=== PATIENT | female | born 1940 | race Caucasian/White ===

== ENCOUNTER → 2016-11-04 | Emergency (ER) | payer OTHER ==
[~2016-11-04] MED LIST: ASPIRIN 325 MG TABLET ONE; ASPIRIN 81 MG CHEWABLE TABLETS PO ONE
--- NOTE | 2016-11-04 03:24 | PDOC ---
[id number] No Limitations - History of Present Illness Initial Comments: 11/04/16 03:49 The patient is a 76-year-old female, with a significant past medical history of asthma, dizziness, and hypertension, who presents to the ED with palpitations that began today at 2AM. The palpitations woke the patient up out of her sleep, lasting 1 minute, stopping, and then recurring again. The patient denies any shortness of breath, chest pain, or back pain. <Latricia Juarez - Last Filed: 11/04/16 03:57> - General History Source: Patient - History of Present Illness Timing/Duration: 1 hour Severity: mild Associated Symptoms: reports: denies symptoms Aspirin Received prior to arrival: Yes: no aspirin today <Enoc Castaneda - Last Filed: 11/30/16 06:15> - General Stated Complaint: PAIN Past History <Latricia Juarez - Last Filed: 11/04/16 03:57> - Travel Traveled outside of the country in the last 30 days: No Close contact w/someone who was outside of country & ill: No - Past Medical History Anemia: No Asthma: Yes Cancer: No Cardiac Disorders: No CVA: No COPD: No CHF: No Dementia: No Diabetes: No GI Disorders: No Disorders: No HTN: Yes Hypercholesterolemia: Yes Liver Disease: No Seizures: No Thyroid Disease: No - Surgical History Abdominal Surgery: No Appendectomy: No Cardiac Surgery: No Cholecystectomy: No Lung Surgery: No Neurologic Surgery: No Orthopedic Surgery: No - Psycho/Social/Smoking Cessation Hx Anxiety: No Suicidal Ideation: No Smoking History: Former smoker Have you smoked in the past 12 months: No If you are a former smoker, when did you quit?: 1991 Hx Alcohol Use: No Drug/Substance Use Hx: No Substance Use Type: None Hx Substance Use Treatment: No <Enoc Castaneda - Last Filed: 11/30/16 06:15> - Past Medical History Allergies/Adverse Reactions: Allergies Allergy/AdvReac Type Severity Reaction Status Date / Time pepper Allergy Verified 06/15/16 20:25 MUSTARD Allergy Severe Swelling Uncoded 06/15/16 20:25 PEPPER Allergy Severe Swelling Uncoded 06/15/16 20:25 Home Medications: Ambulatory Orders Montelukast Na [Singulair -] 10 mg PO HS 07/21/13 Acetaminophen [Tylenol .Regular Strength -] 2 tab PO PRN PRN 08/25/13 Omeprazole [Prilosec (RX)] 20 mg PO DAILY 08/25/13 Albuterol Sulfate Inhaler - [Ventolin Hfa Inhaler -] 1 - 2 inh PO QID 02/04/16 Docusate Sodium [Colace -] 100 mg PO TID #21 capsule 02/13/16 Polyethylene Glycol 3350 [Miralax (For Daily Use) -] 17 gm PO DAILY PRN #1 bottle 02/14/16 Oxycodone HCl/Acetaminophen [Percocet 5-325 mg Tablet] 1 - 2 tab PO Q6H PRN #30 tab MDD 6 02/22/16 Aspirin [ASA -] 81 mg PO DAILY tab.chew 06/16/16 Atorvastatin Ca [Lipitor] 40 mg PO HS tablet 06/16/16 Docusate Sodium [Colace -] 100 mg PO TID PRN #0 capsule 06/16/16 Fluticasone Propionate [Flovent Diskus] 100 mcg IH PRN 06/16/16 Furosemide [Lasix -] 20 mg PO DAILY tablet 06/16/16 Losartan 50Mg/Hctz 12.5MG [Hyzaar -] 1 tab PO DAILY tablet 06/16/16 Review of Systems - Review of Systems Able to Perform ROS?: Yes Comments:: 11/04/16 03:50 GENERAL/CONSTITUTIONAL: No fever or chills. No weakness. HEAD, EYES, EARS, NOSE AND THROAT: No change in vision. No ear pain or discharge. No sore throat. CARDIOVASCULAR: No chest pain or shortness of breath. (+)Palpitations RESPIRATORY: No cough, wheezing, or hemoptysis. GASTROINTESTINAL: No nausea, vomiting, diarrhea or constipation. GENITOURINARY: No dysuria, frequency, or change in urination. MUSCULOSKELETAL: No joint or muscle swelling or pain. No neck or back pain. SKIN: No rash NEUROLOGIC: No headache, vertigo, loss of consciousness, or change in strength/ sensation. ENDOCRINE: No increased thirst. No abnormal weight change. HEMATOLOGIC/LYMPHATIC: No anemia, easy bleeding, or history of blood clots. ALLERGIC/IMMUNOLOGIC: No hives or skin allergy. <Latricia Juarez - Last Filed: 11/04/16 03:57> - Review of Systems Constitutional: No: Chills, Fever HEENTM: No: Blurred Vision, Double Vision, Other Respiratory: No: Cough, Orthopnea, Shortness of Breath, Wheezing Cardiac (ROS): Yes: Palpitations. No: Chest Pain, Edema ABD/GI: No: Nausea, Vomiting : No: Burning, Dysuria, Discharge Musculoskeletal: No: Back Pain, Gout Neurological: No: Headache, Numbness <Enoc Castaneda - Last Filed: 11/30/16 06:15> *Physical Exam - Vital Signs Last Vital Signs Temp Pulse Resp BP Pulse Ox 98.3 F 60 20 126/76 98 11/04/16 03:19 11/04/16 03:19 11/04/16 03:19 11/04/16 03:19 11/04/16 03:19 - Physical Exam Comments: 11/04/16 03:50 GENERAL: Awake, alert, and fully oriented, in no acute distress HEAD: No signs of trauma EYES: PERRLA, EOMI, sclera anicteric, conjunctiva clear ENT: Auricles normal inspection, hearing grossly normal, nares patent, oropharynx clear without exudates. Moist mucosa. NECK: Normal ROM, supple, no lymphadenopathy, JVD, or masses LUNGS: Breath sounds equal, clear to auscultation bilaterally. No wheezes, and no crackles HEART: Regular rate and rhythm, normal S1 and S2, no murmurs, rubs or gallops ABDOMEN: Soft, nontender, normoactive bowel sounds. No guarding, no rebound. No masses EXTREMITIES: Normal range of motion, no edema. No clubbing or cyanosis. No cords, erythema, or tenderness NEUROLOGICAL: Cranial nerves II through XII grossly intact. Normal speech, normal gait SKIN: Warm, Dry, normal turgor, no rashes or lesions noted <Latricia Juarez - Last Filed: 11/04/16 03:57> - Physical Exam General Appearance: Yes: Nourished, Appropriately Dressed HEENT: positive: EOMI, ANA, Normal ENT Inspection, Normal Voice Neck: positive: Trachea midline, Supple Respiratory/Chest: positive: Lungs Clear, Normal Breath Sounds. negative: Respiratory Distress Cardiovascular: positive: Regular Rhythm, Regular Rate, S1, S2, Edema, JVD <Enoc Castaneda - Last Filed: 11/30/16 06:15> Heart Score/ECG Review - ECG Intrepretation Comment:: 11/04/16 03:57 EKG was reviewed by Dr. Castaneda at 3:27. Impression: NSR 59 bpm with axis. Positive LVW. Nonspecific T wave. <Latricia Juarez - Last Filed: 11/04/16 03:57> ED Treatment Course - LABORATORY CBC & Chemistry Diagram: 11/04/16 03:48 11/04/16 03:48 - Medications Given in the ED: ED Medications Discontinued Medications Generic Name Dose Route Start Last Admin Trade Name Amanuel PRN Reason Stop Dose Admin Aspirin 324 mg 11/04/16 03:22 11/04/16 03:44 Asa - PO 11/04/16 03:23 324 mg ONCE ONE Administration <Latricia Juarez - Last Filed: 11/04/16 03:57> - LABORATORY CBC & Chemistry Diagram: 11/04/16 03:48 11/04/16 03:48 <Enoc Castaneda - Last Filed: 11/30/16 06:15> Medical Decision Making - Medical Decision Making 11/04/16 06:40 This is a 76yo F with isolated episode of palpitations tonight without chest pain and no other symptoms. She has minor cardiac risk and has a negative evaluation otherwise. She is discharged with follow up with the PMD within the next 24 hours. 11/30/16 06:15 <Enoc Castaneda - Last Filed: 11/30/16 06:15> *DC/Admit/Observation/Transfer - Attestations Scribe Attestion: 11/04/16 03:51 Documentation prepared by Latricia Juarez, acting as senior medical director for Enoc Castaneda MD. <Latricia Juarez - Last Filed: 11/04/16 03:57> - Discharge Dispostion Admit: No Decision to Admit order Date/Time: 11/04/16 06:42 - Attestations Physician Attestion: 11/04/16 06:42 I, Dr. Enoc Castaneda MD, attest that this document has been prepared under my direction and personally reviewed by me in its entirety. I further attest, that it accurately reflects all work, treatment, procedures and medical decision -making performed by me. <Enoc Castaneda - Last Filed: 11/30/16 06:15> Diagnosis at time of Disposition: Intermittent palpitations - Discharge Dispostion Disposition: HOME Condition at time of disposition: Good - Referrals Referrals: Dusty Becerril MD [Primary Care Provider] - - Patient Instructions Additional Instructions: Please follow up with your PMD within the next 24 hours and if there is any change otherwise in your symptoms, please return immediately to the ED.
[2016-11-04 03:28] VITALS: BP 126/76; PULSE 60; TEMP 98.3; BMI 37.0
[2016-11-04 04:03] LABS: BASOPHIL 0.4 % (0-2.0); MCH 28.7 pg (25.7-33.7); MEAN CELL VOLUME 87.1 fl (80-96); MEAN PLT VOLUME 8.7 fl (7.5-11.1); NEUTROPHILS 48.6 % (42.8-82.8); PLATELET COUNT 204 K/MM3 (134-434); RDW 15.2 % (11.6-15.6); WHITE BLOOD COUNT 6.8 K/mm3 (4.0-10.0)
[2016-11-04 04:13] LABS: INR 1.06 (0.82-1.09); PROTHROMBIN TIME (PATIENT) 11.7 SEC (9.98-11.88)
[2016-11-04 04:23] LABS: ALBUMIN 3.3 g/dl (3.4-5.0); ANION GAP 7 (8-16); BILIRUBIN,TOTAL 0.4 mg/dL (0.2-1.0); CALCIUM 8.6 mg/dL (8.5-10.1); CO2 28 mmol/L (21-32); CREATININE 1.1 mg/dL (0.55-1.02); GLUCOSE,RANDOM 91 mg/dL (74-106); MAGNESIUM 2.1 mg/dL (1.8-2.4); PHOSPHOROUS 3.1 mg/dL (2.5-4.9); SGOT/AST 12 U/L (15-37); SGPT/ALT 16 U/L (12-78); TOT PROT 6.2 g/dl (6.4-8.2)
[2016-11-04 04:26] LABS: ALK PHOS 86 U/L (45-117); TROPONIN I < 0.02 ng/ml (0.00-0.05)
[2016-11-04 04:43] LABS: FREE T4 0.87 ng/dl (0.76-1.46); THYROID STIMULATING HORMONE 5.03 uIU/ml (0.358-3.74)
--- NOTE | 2016-11-04 18:23 | EKG ---
Test Reason : Blood Pressure : / mmHG Vent. Rate : 059 BPM Atrial Rate : 059 BPM P-R Int : 204 ms QRS Dur : 080 ms QT Int : 412 ms P-R-T Axes : 055 013 033 degrees QTc Int : 407 ms SINUS BRADYCARDIA OTHERWISE NORMAL ECG WHEN COMPARED WITH ECG OF 15-JUN-2016 21:20, NO SIGNIFICANT CHANGE WAS FOUND Confirmed by MONICA ZAMUDIO MD ([id number]) on 11/04/2016 6:23:39 PM Referred By: Confirmed By:MONICA ZAMUDIO MD
== END | disposition home or self-care (01) ==
LOC: JER 03:16
DX: R00.2 Palpitations (principal); I10 Essential (primary) hypertension; J45.909 Unspecified asthma, uncomplicated
CPT/HCPCS: 36415; 71010-TC; 80053; 82550; 83690; 83735; 83880; 84100; 84439; 84443; 84481; 84484; 85025; 85610; 86850; 86900; 86901; 93005; 93010; 99281-25

== ENCOUNTER 2019-03-05 09:53 | Emergency (ER) | payer OTHER ==
[2019-03-05 10:03] VITALS: PULSE 65; TEMP 98.4; BMI 41.3
[2019-03-05] MEDS ORDERED: SODIUM CHLORIDE 1,000 ML IV STA (10:47)
[2019-03-05 11:19] LABS: INR 1.07 (0.83-1.09); PROTHROMBIN TIME (PATIENT) 12.6 SEC (9.7-13.0)
[2019-03-05 11:21] VITALS: BP 123/70
--- NOTE | 2019-03-05 11:30 | PDOC ---
Documentation entered by Roger Funes SCRIBE, acting as scribe for Kecia Solomon MD. Kecia Solomon MD: This documentation has been prepared by the Shantel cottrell Xhesika, SCRIBE, under my direction and personally reviewed by me in its entirety. I confirm that the documentation accurately reflects all work, treatment, procedures, and medical decision making performed by me. History of Present Illness - General Chief Complaint: Lightheaded Stated Complaint: RAPID RESPONSE History Source: Patient Exam Limitations: No Limitations - History of Present Illness Initial Comments: 03/05/19 10:53 Ms. Palomares is an 78 year old female with a significant PMH of Asthma, Anemia, COPD, GERD, HTN, HLD, Neuropathy (compliant with all medications) who presents to the emergency department from hospital admitting secondary to lightheadedness which is worse when standing. The patient presented to the hospital today for an outpatient CT of the abdomen due to chronic abdominal pain which is being worked up by her PMD. The patient was told not to eat after 5pm yesterday. She was still drinking fluids. While in the admitting waiting room, she began to feel dizzy. Pt felt as though she was going to pass out but did not. She denies chest pain. She denies shortness of breath. She denies abdominal pain. She denies nausea, vomiting, diarrhea. She denies headache. She denies vertigo or tinnitus. Currently, the patient reports that her lightheadedness has improved. Allergies: pepper, mustard Past surgical history: hysterectomy, cholecystectomy Social history: Former smoker PCP: Kia Bosch GI: Dr. Martell Past History - Past Medical History Allergies/Adverse Reactions: Allergies Allergy/AdvReac Type Severity Reaction Status Date / Time pepper (genus Capsicum) Allergy Verified 03/05/19 10:04 [pepper] MUSTARD Allergy Severe Swelling Uncoded 03/05/19 10:04 PEPPER Allergy Severe Swelling Uncoded 03/05/19 10:04 Home Medications: Ambulatory Orders Montelukast Na [Singulair -] 10 mg PO HS 07/21/13 Acetaminophen [Tylenol .Regular Strength -] 2 tab PO PRN PRN 08/25/13 Omeprazole [Prilosec (RX)] 20 mg PO DAILY 01/13/14 Albuterol Sulfate Inhaler - [Ventolin Hfa Inhaler -] 1 - 2 inh PO QID 02/04/16 Docusate Sodium [Colace -] 100 mg PO TID #21 capsule 02/13/16 Polyethylene Glycol 3350 [Miralax (For Daily Use) -] 17 gm PO DAILY PRN #1 bottle 02/14/16 Oxycodone HCl/Acetaminophen [Percocet 5-325 mg Tablet] 1 - 2 tab PO Q6H PRN #30 tab MDD 6 02/22/16 Aspirin [ASA -] 81 mg PO DAILY tab.chew 06/16/16 Atorvastatin Ca [Lipitor] 40 mg PO HS tablet 06/16/16 Docusate Sodium [Colace -] 100 mg PO TID PRN #0 capsule 06/16/16 Fluticasone Propionate [Flovent Diskus] 100 mcg IH PRN 06/16/16 Furosemide [Lasix -] 20 mg PO DAILY tablet 06/16/16 Losartan 50Mg/Hctz 12.5MG [Hyzaar -] 1 tab PO DAILY tablet 06/16/16 Anemia: Yes Asthma: Yes Cancer: No Cardiac Disorders: No CVA: No COPD: No CHF: No Dementia: No Diabetes: No GI Disorders: No Disorders: No HTN: Yes Hypercholesterolemia: Yes Liver Disease: No Seizures: No Thyroid Disease: No - Surgical History Abdominal Surgery: No Appendectomy: No Cardiac Surgery: No Cholecystectomy: No Lung Surgery: No Neurologic Surgery: No Orthopedic Surgery: No - Suicide/Smoking/Psychosocial Hx Smoking History: Never smoked Have you smoked in the past 12 months: No If you are a former smoker, when did you quit?: 1991 Hx Alcohol Use: No Drug/Substance Use Hx: No Substance Use Type: None Hx Substance Use Treatment: No Review of Systems - Review of Systems Able to Perform ROS?: Yes Comments:: 03/05/19 10:54 GENERAL/CONSTITUTIONAL: No fever or chills. No weakness. HEAD, EYES, EARS, NOSE AND THROAT: No change in vision. No ear pain or discharge. No sore throat. CARDIOVASCULAR: No chest pain or shortness of breath. RESPIRATORY: No cough, wheezing GASTROINTESTINAL: No nausea, vomiting, diarrhea or constipation. GENITOURINARY: No dysuria, frequency, or change in urination. MUSCULOSKELETAL: No joint or muscle swelling or pain. No neck or back pain. SKIN: No rash NEUROLOGIC: (+) lightheaded/dizziness. No headache, vertigo, loss of consciousness, or change in strength/sensation. ENDOCRINE: No weight gain or weight loss HEMATOLOGIC/LYMPHATIC: No easy bleeding, or known history of blood clots. ALLERGIC/IMMUNOLOGIC: No hives or skin allergy. 03/06/19 16:38 *Physical Exam - Vital Signs Last Vital Signs Temp Pulse Resp BP Pulse Ox 98.4 F 65 20 141/86 96 03/05/19 10:01 03/05/19 10:01 03/05/19 10:01 03/05/19 10:01 03/05/19 10:01 - Physical Exam Comments: 03/05/19 10:54 GENERAL: Awake, alert, and fully oriented, in no acute distress. +obese HEAD: No signs of trauma EYES: PERRLA, EOMI, sclera anicteric, conjunctiva clear ENT: Auricles normal inspection, hearing grossly normal, nares patent, oropharynx clear without exudates. Moist mucosa NECK: Normal ROM, supple, no lymphadenopathy, JVD, or masses LUNGS: Breath sounds equal, clear to auscultation bilaterally. No wheezes, and no crackles HEART: Regular rate and rhythm, normal S1 and S2, no murmurs, rubs or gallops ABDOMEN: Soft, nontender, normoactive bowel sounds. No guarding, no rebound. No masses EXTREMITIES: Normal range of motion, no edema. No clubbing or cyanosis. No cords, erythema, or tenderness NEUROLOGICAL: Cranial nerves II through XII grossly intact. Normal speech, normal gait SKIN: Warm, Dry, normal turgor, no rashes or lesions noted. ED Treatment Course - LABORATORY CBC & Chemistry Diagram: 03/05/19 10:46 03/05/19 10:46 - ADDITIONAL ORDERS Additional order review: Laboratory Results 03/05/19 09:58 POC Glucometer 81 03/05/19 09:58 POC Glucometer 81 - RADIOLOGY Radiology Studies Ordered: Category Date Time Status CHEST X-RAY PORTABLE* [RAD] Stat Radiology 03/05/19 10:35 Completed Medical Decision Making - Medical Decision Making 03/05/19 11:28 EKG - NSR rate of 61 bpm, axis nml, intervals nml, no st elevation or depression Pt reports dizziness when standing while in admitting being checked in for an outpatient CT DD: Orthostasis, Dehydration, Hypoglycemia, Electrolyte Abnormality, Anemia Will do labs Will do IVF Suspect pt dizziness related to NOT eating since 5 pm yesterday 03/05/19 12:18 Laboratory Tests 03/05/19 03/05/19 03/05/19 10:46 10:46 10:46 WBC 7.5 Hgb 12.2 Hct 37.0 Plt Count 235 INR BUN 16.0 Creatinine 1.1 Creatine Kinase 56 Troponin I < 0.02 03/05/19 10:46 WBC Hgb Hct Plt Count INR 1.07 BUN Creatinine Creatine Kinase Troponin I Pt re assessed Pt states she feels better Pt ambulatory to the bathroom with a steady gait She is anxious to go EAT and go home Will plan to discharge to home Will contact radiology to see if she can be sent back for CT *DC/Admit/Observation/Transfer Diagnosis at time of Disposition: Lightheadedness - Discharge Dispostion Disposition: HOME Condition at time of disposition: Stable Decision to Admit order: No - Referrals Referrals: Kia Lovelace [Primary Care Provider] - - Patient Instructions Printed Discharge Instructions: Combating Dizziness in Older Adults, DI for Dizziness-Nonvertigo Additional Instructions: Ms Palomares Thank you for coming in to the ER today You can be seen by the Radiology department today for your CT scan (go to the desk sergeant to register) Return to the emergency department immediately with ANY new, persistent or worsening symptoms. Continue any medications as previously prescribed by your physician. You should follow up with your primary doctor as soon as possible regarding today's emergency department visit. Please make sure your doctor reviews the results of your emergency evaluation. Thank you for coming to the Emergency Department today for your care. It was a pleasure to see you today. Please note that your evaluation is INCOMPLETE until you follow-up with your doctor. - Post Discharge Activity
[2019-03-05 11:37] LABS: ALBUMIN 3.6 g/dl (3.4-5.0); BILIRUBIN,TOTAL 0.6 mg/dL (0.2-1); CREATININE 1.1 mg/dL (0.55-1.3); MAGNESIUM 2.4 mg/dL (1.8-2.4); POTASSIUM 4.9 mmol/L (3.5-5.1); TOT PROT 6.7 g/dl (6.4-8.2)
[2019-03-05 11:44] LABS: BASO % 0.3 % (0-2.0); EOS % 1.7 % (0-4.5); HEMOGLOBIN 12.2 GM/dL (10.7-15.3); LYMPH % 27.7 % (8-40); MCH 28.4 pg (25.7-33.7); MCHC 32.9 g/dl (32.0-36.0); MEAN CELL VOLUME 86.1 fl (80-96); MEAN PLT VOLUME 8.6 fl (7.5-11.1); MONO % 10.4 % (3.8-10.2); NEUT % 59.9 % (42.8-82.8); PLATELET COUNT 235 K/MM3 (134-434); RBC 4.29 M/mm3 (3.60-5.2); RDW 14.6 % (11.6-15.6); WHITE BLOOD COUNT 7.5 K/mm3 (4.0-10.0)
--- NOTE | 2019-03-05 14:57 | EKG ---
Test Reason : Blood Pressure : / mmHG Vent. Rate : 061 BPM Atrial Rate : 061 BPM P-R Int : 172 ms QRS Dur : 080 ms QT Int : 410 ms P-R-T Axes : 056 002 034 degrees QTc Int : 412 ms NORMAL SINUS RHYTHM NORMAL ECG WHEN COMPARED WITH ECG OF 04-NOV-2016 03:27, NO SIGNIFICANT CHANGE WAS FOUND Confirmed by SERINA DANG MD ([id number]) on 03/05/2019 2:56:33 PM Referred By: Confirmed By:SERINA DANG MD
== END 2019-03-05 12:54 | disposition home or self-care (01) ==
LOC: JER 09:53
PROC: 3E0337Z Introduction of Electrolytic and Water Balance Substance into Peripheral Vein, Percutaneous Approach (ICD-10-PCS; principal; 2019-03-05)
DX: R42 Dizziness and giddiness (principal); Z87.891 Personal history of nicotine dependence; E78.00 Pure hypercholesterolemia, unspecified; I10 Essential (primary) hypertension; J45.909 Unspecified asthma, uncomplicated
CPT/HCPCS: 36415; 71045-TC-FY; 80053; 82550; 82962; 83735; 84484; 85025; 85610; 86850; 86900; 86901; 93005; 93010; 96360; 99284-25; J7030

== ENCOUNTER 2020-12-02 04:47 | Day surgery (SDC) | payer OTHER ==
[2020-11-30 10:23] VITALS: BMI 40.0
[2020-12-02 11:08] VITALS: TEMP 96.9
[2020-12-02 12:23] VITALS: BP 126/57; PULSE 53
== END 2020-12-02 12:09 | disposition home or self-care (01) ==
LOC: JASU-ENDO 04:47
PROVIDERS: ATTEND Internal Medicine Gastroenterology
PROC: 0DJ08ZZ Inspection of Upper Intestinal Tract, Via Natural or Artificial Opening Endoscopic (ICD-10-PCS; principal; 2020-12-02 11:30)
DX: K29.50 Unspecified chronic gastritis without bleeding (principal); K31.89 Other diseases of stomach and duodenum
CPT/HCPCS: 88305-TC; 88342-TC